=== PATIENT | female | born 1980 | race Caucasian/White ===

== ENCOUNTER → 2020-04-17 | Outpatient (CLI) | payer OTHER ==
--- NOTE | 2020-04-17 16:48 | RADIOLOGY REPORT (SQ) ---
EXAM DESCRIPTION: HYSTERO CATH/INJECTION; HYSTEROSALPINGOGRAM IMAGES COMPLETED DATE/TIME: 04/17/2020 3:33 pm REASON FOR STUDY: N97.9 FEMALE INFERTILITY, UNSPECIFIED N97.9 FEMALE INFERTILITY, UNSPECIFIED COMPARISON: None. PROCEDURE: PRE-PROCEDURE: Procedure was explained to the patient. She was told to expect cramping du ring the procedure, and possible spotting post procedure. PROCEDURE: The cervix was prepped in sterile fashion. Under direct visual inspection, the cervix was cannulated with the hysterosalpingogram catheter and contrast injected. TECHNIQUE: Temporal fluoroscopic images acquired during the procedure stored to PACS. FLUOROSCOPY TIME: 14 seconds. 5 images saved to PACS. LIMITATIONS: None. FINDINGS: UTERUS: No identified anomalies. No synechia. RIGHT ADNEXA: Normal size fallopian tube. Free spill of contrast into the peritoneal cavity. LEFT ADNEXA: Surgically resected for previous ectopic . POST PROCEDURE: The patient tolerated the procedure with no adverse effects. IMPRESSION: LEFT FALLOPIAN TUBE HAS BEEN SURGICALLY RESECTED. OTHERWISE NORMAL HYSTEROSALPINGOGRAM. PATENT RIGHT FALLOPIAN TUBE. COMMENT: Study performed and interpreted by the radiologist. Quality ID [id number]: Final reports for procedures using fluoroscopy that document radiation exposure sampson amairani, or exposure time and number of fluorographic images (if radiation exposure indices are not avail able) TECHNICAL DOCUMENTATION: JOB ID: [id number] 2010 [employer]- All Rights Reserved Reading location - IP/workstation name: [email or web address]
== END ==
LOC: RAD 14:54
PROVIDERS: ATTEND Obstetrics & Gynecology Gynecology
DX: N97.9 Female infertility, unspecified (principal)
CPT/HCPCS: 58340; 74740

== ENCOUNTER → 2020-05-30 | Outpatient (CLI) | payer OTHER ==
[~2020-05-30] MED LIST: COVID-19 VACCINE (PFIZER)/PF 30 MCG/0.3 ML VIAL IM ONE; EPINEPHRINE INJ/PF 1 MG/1 ML AMPULE IM PRN
== END ==
LOC: EMPHEALTH 07:42
PROVIDERS: ATTEND Internal Medicine
DX: Z23 Encounter for immunization (principal)
CPT/HCPCS: 91300

== ENCOUNTER → 2020-06-20 | Outpatient (CLI) | payer OTHER | LOC: EMPHEALTH 08:15 | PROVIDERS: ATTEND Internal Medicine | DX: Z23 Encounter for immunization (principal) | CPT/HCPCS: 91300 ==